=== PATIENT | female | born 1995 | race American Indian/Alaskan Native ===

== ENCOUNTER 2017-06-15 07:47 | Emergency (ER) | payer OTHER ==
[2017-06-15 08:00] VITALS: BP 122/69
[2017-06-15] MEDS ORDERED: FLEXERIL PO ONE (09:50)
[2017-06-15] MEDS ORDERED: NORCO 5/325 PO ONE (09:50)
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
== END 2017-06-15 11:38 | disposition home or self-care (01) ==
LOC: ED 07:47
DX: S16.1XXA Strain of muscle, fascia and tendon at neck level, initial encounter (principal); S39.012A Strain of muscle, fascia and tendon of lower back, initial encounter; M54.5 Low back pain; V43.52XA Car driver injured in collision with other type car in traffic accident, initial encounter; Y92.488 Other paved roadways as the place of occurrence of the external cause; Y93.89 Activity, other specified; Y99.9 Unspecified external cause status
CPT/HCPCS: 99282

== ENCOUNTER 2017-06-21 19:24 | Emergency (ER) | payer OTHER ==
--- NOTE | 2017-06-21 21:31 | XRay Report ---
FINAL REPORT PROCEDURE: XR SPINE LUMBOSACRAL 2-3V TECHNIQUE: Lumbar spine radiographs, including AP, lateral, and lumbosacral spot views. CPT 02326 HISTORY: back pain COMPARISON: No prior studies are available for comparison. FINDINGS: Alignment: Normal. Vertebral body heights/Disk spaces: Normal. Fracture(s): None. Facets: Normal. Bone mineralization: Normal. IMPRESSION: Normal Examination.
[2017-06-22] MEDS ORDERED: MOTRIN PO ONE (00:05)
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
[2017-06-22 00:30] VITALS: BP 100/58
== END 2017-06-22 00:30 | disposition home or self-care (01) ==
LOC: ED 19:24
DX: S39.012A Strain of muscle, fascia and tendon of lower back, initial encounter (principal); V79.88XA Bus occupant (driver) (passenger) injured in other specified transport accidents, initial encounter; Y92.488 Other paved roadways as the place of occurrence of the external cause; Y93.89 Activity, other specified; Y99.9 Unspecified external cause status
CPT/HCPCS: 72100; 99283